=== PATIENT | male | born 1970 | race Two or more races ===

== ENCOUNTER 2018-02-24 04:36 | Emergency (ER) | payer OTHER ==
[~2018-02-24] VITALS: Ht 190.5 cm; Wt 134.7 kg
[2018-02-24] MEDS ORDERED: QUET300T2 PO (04:58)
[2018-02-24] MEDS ORDERED: LORA2TAB PO (04:58)
[2018-02-24] MEDS ORDERED: TRAZ300T2 PO (04:58)
[2018-02-24] MEDS ORDERED: BUPR-96 PO (04:58)
[2018-02-24] MEDS ORDERED: LORAZEPAM 1 MG TABLET ONE (05:29)
[2018-02-24] MEDS: LORAZEPAM 0.5 MG TABLET PO ONE (05:30)
[2018-02-24] MEDS: IV NORMAL SALINE 1000 ML BAG IV ONE (05:30)
--- NOTE | 2018-02-24 05:33 | NUR ---
Pt refused saline lock and IV fluids. aware.
[2018-02-24 05:40] LABS: BASOPHILS % (AUTO) 0.6 % (0.0-2.0); EOSINOPHILS # (AUTO) 0.4 K/uL (0.0-0.7); EOSINOPHILS % (AUTO) 4.3 % (0.0-7.0); HEMATOCRIT 38.7 % (36.7-47.1); HEMOGLOBIN 13.1 g/dL (12.5-16.3); LYMPHOCYTES # (AUTO) 1.5 K/uL (20.0-40.0); LYMPHOCYTES % (AUTO) 17.1 % (20.5-51.5); MEAN CORPUSCULAR HEMOGLOBIN 30.5 uug (23.8-33.4); MEAN CORPUSCULAR HGB CONC 34 g/dL (32.5-36.3); MEAN CORPUSCULAR VOLUME 90.2 fL (73.0-96.2); MONOCYTES # (AUTO) 0.9 K/uL (2.0-10.0); MONOCYTES % (AUTO) 10.5 % (0.0-11.0); NEUTROPHILS # (AUTO) 5.9 K/uL (1.8-8.9); NEUTROPHILS % (AUTO) 67.5 % (38.5-71.5); PLATELET COUNT (AUTO) 327 K/uL (152-348); RED BLOOD CELL COUNT(AUTO) 4.29 MIL/uL (4.06-5.63); WHITE BLOOD COUNT (AUTO) 8.8 K/uL (3.6-10.2)
[2018-02-24 05:42] LABS: *BLOOD, URINE NEGATIVE (NEGATIVE); *COLOR,URINE AMBER (YELLOW); *KETONES,URINE 1+ (NEGATIVE); *PROTEIN,URINE 1+ (NEGATIVE); *UROBILINOGEN,URINE >=8.0 E.U./dl (NORMAL); LEUKOCYTE ESTERASE ,URINE NEGATIVE (NEGATIVE); NITRITE, URINE NEGATIVE (NEGATIVE); UGLUCOSE NEGATIVE (NEGATIVE)
[2018-02-24 05:50] LABS: *BILIRUBIN,URIN 1+ (NEGATIVE); *CLARITY,URINE HAZY (CLEAR)
[2018-02-24 05:53] LABS: CARBON DIOXIDE 27 mmol/L (21-32); CHLORIDE 106 mmol/L (98-107); GLUCOSE 104 mg/dL (74-106); POTASSIUM 3.8 mmol/L (3.5-5.1); UREA NITROGEN, BLOOD 13 mg/dL (7-18)
[2018-02-24 05:54] LABS: BACTERIA,URINE NONE SEEN /HPF (NONE SEEN); MUCUS,URINE MANY /LPF (0-FEW); SQUAMOUS EPITHELIAL CELL,UR FEW /HPF (NONE SEEN); WBC,URINE 0-3 /HPF (0-3)
[2018-02-24 05:56] LABS: *AMPHETAMINE, URINE POSITIVE (NEGATIVE); *BARBITURATE, URINE NEGATIVE (NEGATIVE); *CANNABINOID, URINE POSITIVE (NEGATIVE); *COCCAINE, URINE POSITIVE (NEGATIVE); *OPIATE, URINE NEGATIVE (NEGATIVE); *PHENCYCLIDINE SCREEN,URINE NEGATIVE (NEGATIVE)
[2018-02-24 05:59] LABS: ALANINE AMINOTRANSFERASE 61 U/L (16-63); ALKALINE PHOSPHATASE 107 U/L (50-136); ASPARTATE AMINOTRANSFERASE 43 U/L (15-37); BILIRUBIN,DIRECT 0.2 mg/dL (0.0-0.2); BILIRUBIN,TOTAL 0.5 mg/dL (0.2-1.0)
[2018-02-24 06:00] LABS: ACETAMINOPHEN < 2.0 ug/mL (10-30)
[2018-02-24 06:07] LABS: ETHANOL < 3 MG/DL (0-0)
--- NOTE | 2018-02-24 07:13 | NUR ---
Report given to day shift RN.
--- NOTE | 2018-02-24 07:14 | NUR ---
recieved pt in bed resting. bf ordered.
--- NOTE | 2018-02-24 07:54 | NUR ---
pt awake, bf tray [id number]. pt eating with good apetite.
--- NOTE | 2018-02-24 11:04 | NUR ---
pt skin intact, no dressing required
--- NOTE | 2018-02-24 11:04 | NUR ---
faxed to lennie at [facility] the md dictated medical clearance.
--- NOTE | 2018-02-24 12:01 | NUR ---
pt [facility] lunch with good apetite
--- NOTE | 2018-02-24 12:20 | NUR ---
pt requesting wheel chair, explained to pt that we cannot give wheel chair to pt while being transfered to another acute hospital. pt got agitated, had to call code cano
[2018-02-24] MEDS: IBUPROFEN 800 MG TABLET PO ONE (12:24)
[2018-02-24] MEDS: GABAPENTIN 300 MG CAPSULE PO ONE (12:24)
[2018-02-24] MEDS ORDERED: IBUPROFEN 800 MG TABLET ONE (12:26)
[2018-02-24] MEDS ORDERED: GABAPENTIN 300 MG CAPSULE ONE (12:26)
--- NOTE | 2018-02-24 12:30 | NUR ---
pt calmed down. cooperative at this point
--- NOTE | 2018-02-24 12:33 | NUR ---
pt transfered to [facility] via [facility] in stable condition.
--- NOTE | 2018-02-24 12:45 | NUR ---
report given to rn at [facility]
== END 2018-02-24 12:33 | disposition short-term general hospital (02) ==
LOC: ER 04:42
DX: F29 Unspecified psychosis not due to a substance or known physiological condition (principal); R45.851 Suicidal ideations; F19.10 Other psychoactive substance abuse, uncomplicated; F31.9 Bipolar disorder, unspecified; F11.10 Opioid abuse, uncomplicated; F15.10 Other stimulant abuse, uncomplicated; Z88.8 Allergy status to other drugs, medicaments and biological substances
CPT/HCPCS: 36415; 70030-TC; 80307; 85025; 93005; A4663; G0480; G0480-TC; J7030

== ENCOUNTER 2018-04-05 06:48 | Emergency (ER) | payer OTHER ==
[~2018-04-05] VITALS: Ht 193 cm; Wt 131.5 kg
[~2018-04-05 06:48] MED LIST: BUPR-96 PO; LORA2TAB PO; QUET300T2 PO; TRAZ300T2 PO
--- NOTE | 2018-04-05 07:03 | NUR ---
PT A/OX4, RESPONSIVE TO VERBAL AND TACTILE STIMULI. PT C/O R LEG AND R KNEE PAIN. PT STATES PAIN STARTED YESTERDAY AFTER HE FELL, PROVOKED UPON MOVEMENT, DOES NOT RADIATE, 12/07, CONSTANT. UPON ASSESSMENT, LEG DOSE NOT APPEAR SWOLLEN, DEFORMED, OR HOT TO THE TOUCH. PT SELF-AMBULATES WITHOUT DIFFICULTY. PT VSS. PT IN BED, BED IN LOW AND LOCKED POSITION WITH BILATERAL SIDERAILS UP. PT ALSO ASKING FOR MEDICATIONS FOR HIS BIPOLAR D/O, STATING HE RAN OUT OF HIS PRESCRIPTION MEDS. Addendum: 04/05/18 at 0709 by ASHLEY PT DENIES HEAD INJURY RELATED TO THE FALL YESTERDAY. PT DENIES LOC AT TIME OF FALL. BLE [facility] INTACT AND < 3 SECS.
--- NOTE | 2018-04-05 07:09 | NUR ---
HEATHER MCDONALD AT BEDSIDE.
--- NOTE | 2018-04-05 07:10 | NUR ---
SBAR REPORT GIVEN TO WINNIE PIZARRO.
[2018-04-05] MEDS ORDERED: NEOMY/BACITRA/POLYMYXIN B OINT UD PACKET TP ONE ×2 (07:15→07:19)
[2018-04-05] MEDS ORDERED: IBUPROFEN 800 MG TABLET PO ONE (07:15)
--- NOTE | 2018-04-05 07:15 | NUR ---
Pt requested MD to stay in bed and rest "awhile".
[2018-04-05] MEDS ORDERED: IBUPROFEN 800 MG TABLET ONE (07:19)
--- NOTE | 2018-04-05 08:04 | NUR ---
Patient is resting comfortably in bed with eyes closed, NAD.
--- NOTE | 2018-04-05 10:21 | NUR ---
Patient is resting comfortably in bed with eyes closed, no distress noted.
--- NOTE | 2018-04-05 10:46 | NUR ---
Patient given written and verbal discharge instructions. Patient verbalizes understanding of instructions. Patient is ambulatory with steady gait. Refuses offer of alf placement. Patient given list of available shelters in surrounding area.
[2018-04-05 10:47] VITALS: BP 116/77
== END 2018-04-05 10:48 | disposition home or self-care (01) ==
LOC: ER 06:50
DX: S80.211A Abrasion, right knee, initial encounter (principal); S80.212A Abrasion, left knee, initial encounter; M25.571 Pain in right ankle and joints of right foot; Z76.0 Encounter for issue of repeat prescription; F14.10 Cocaine abuse, uncomplicated; F12.10 Cannabis abuse, uncomplicated; Z88.8 Allergy status to other drugs, medicaments and biological substances; W01.0XXA Fall on same level from slipping, tripping and stumbling without subsequent striking against object, initial encounter; Y93.89 Activity, other specified; Y92.89 Other specified places as the place of occurrence of the external cause; Y99.8 Other external cause status
CPT/HCPCS: A4663

== ENCOUNTER 2021-04-17 22:18 | Emergency (ER) | payer MEDICAID, OTHER ==
[~2021-04-17] VITALS: Ht 193 cm; Wt 113.4 kg
--- NOTE | 2021-04-17 22:40 | NUR ---
PT AMBULATED TO ER REQUESTING PSYCH EVAL D/T BEING DEPRESSED FOR SEVERAL WEEKS NOW. STATES, " I HAVEN'T TAKEN MY MEDS FOR WEEKS NOW". NO SOB OR LABORED BREATHING, AFEBRILE. CLEAR SPEECH, COMPLETE SENTENCES. DENIES SI, NO AUDIO/VISUAL HALLUCINATIINS. NOTED TO BE YELLING AND VERBALLY AGGRESIVE TOWARDS STAFF.
--- NOTE | 2021-04-17 22:42 | NUR ---
DR. RAYO AT BEDSIDE, MSE IN PROGRESS.
[2021-04-17] MEDS ORDERED: LORAZEPAM 0.5 MG TABLET PO ONE (23:30)
[2021-04-17] MEDS ORDERED: diphenhydrAMINE 50 MG CAPSULE PO ONE (23:30)
[2021-04-17] MEDS ORDERED: OLANZAPINE 5 MG TABLET PO ONE (23:30)
[2021-04-17] MEDS ORDERED: diphenhydrAMINE 50 MG CAPSULE ONE (23:32)
[2021-04-17] MEDS ORDERED: LORAZEPAM 1 MG TABLET ONE (23:32)
[2021-04-17] MEDS ORDERED: OLANZAPINE 5 MG TABLET ONE (23:32)
[2021-04-17 23:44] LABS: *BILIRUBIN,URIN NEGATIVE (NEGATIVE); *BLOOD, URINE NEGATIVE (NEGATIVE); *CLARITY,URINE CLEAR (CLEAR); *COLOR,URINE YELLOW (YELLOW); *KETONES,URINE NEGATIVE (NEGATIVE); LEUKOCYTE ESTERASE ,URINE NEGATIVE (NEGATIVE); NITRITE, URINE NEGATIVE (NEGATIVE); PH,URINE 5.5 (5.0-8.0); UGLUCOSE NEGATIVE (NEGATIVE)
--- NOTE | 2021-04-17 23:50 | NUR ---
LAB AT BEDSIDE.
[2021-04-17 23:55] LABS: BACTERIA,URINE NONE SEEN /HPF (NONE SEEN); RBC,URINE NONE SEEN /HPF (0-3); SQUAMOUS EPITHELIAL CELL,UR FEW /HPF (NONE SEEN); WBC,URINE 0-3 /HPF (0-3)
[2021-04-18 00:01] LABS: HEMATOCRIT 36.4 % (36.7-47.1); PLATELET COUNT (AUTO) 270 K/uL (152-348)
[2021-04-18 00:11] LABS: ETHANOL 5 MG/DL (0-0)
[2021-04-18 00:14] LABS: *AMPHETAMINE, URINE POSITIVE (NEGATIVE); *CANNABINOID, URINE NEGATIVE (NEGATIVE); *COCCAINE, URINE NEGATIVE (NEGATIVE); *OPIATE, URINE NEGATIVE (NEGATIVE); *PHENCYCLIDINE SCREEN,URINE NEGATIVE (NEGATIVE)
[2021-04-18 00:14] LABS: ALANINE AMINOTRANSFERASE 29 U/L (16-63); ALKALINE PHOSPHATASE 96 U/L (50-136); ASPARTATE AMINOTRANSFERASE 19 U/L (15-37); BILIRUBIN,DIRECT 0.1 mg/dL (0.0-0.2); BILIRUBIN,TOTAL 0.1 mg/dL (0.2-1.0); CARBON DIOXIDE 25 mmol/L (21-32); CHLORIDE 106 mmol/L (98-107); GLUCOSE 103 mg/dL (74-106); POTASSIUM 3.9 mmol/L (3.5-5.1); TOTAL PROTEIN, SERUM 6.7 g/dL (6.4-8.2); UREA NITROGEN, BLOOD 7 mg/dL (7-18)
[2021-04-18 00:19] LABS: ACETAMINOPHEN < 2.0 ug/mL (10-30)
--- NOTE | 2021-04-18 00:25 | NUR ---
CALLED STEVIE FROM CRISIS TEAM, ATTEMPTED TO LEAVE MESSAGE BUT VOICEMAIL IS FULL.
--- NOTE | 2021-04-18 00:42 | NUR ---
CALLED STEVIE AGAIN, VOICEMAIL IS FULL.
--- NOTE | 2021-04-18 01:14 | NUR ---
CALLED STEVIE AGAIN, NO ANSWER VOICEMAIL IS FULL.
--- NOTE | 2021-04-18 01:43 | NUR ---
PT NOTED TO E IN BED ASLEEP, BREATHING EVEN AND UNLABORED.
--- NOTE | 2021-04-18 02:37 | NUR ---
STEVIE AT BEDSIDE TO INTERVIEW PT.
--- NOTE | 2021-04-18 04:31 | NUR ---
Patient is resting comfortably in bed with eyes closed.
--- NOTE | 2021-04-18 06:44 | NUR ---
PT NOTED TO BE IN NO DISTRESS, BREATHING EVEN AND UNLABORED. RESTING COMFORTABLY IN BED. BED IN LOWEST POSITION FOR SAFETY PRECAUTIONS.
--- NOTE | 2021-04-18 07:30 | NUR ---
recieved pt in bed resting, arousable. no sign of distress.
--- NOTE | 2021-04-18 08:00 | NUR ---
pt refuses break fast
--- NOTE | 2021-04-18 08:36 | NUR ---
SETVIE CALLED AND SAID WILL FOLLOW UP ON THE CASE.
--- NOTE | 2021-04-18 09:30 | NUR ---
STEVIE AT BEDSIDE.
--- NOTE | 2021-04-18 10:36 | NUR ---
PT VOIDED 350 ML IN THE URINAL
--- NOTE | 2021-04-18 10:38 | NUR ---
SANDWICH AND JUICE PROVIDED PER PT REQUEST.
--- NOTE | 2021-04-18 11:08 | NUR ---
CALLED NORMA, THE INTAKE MANGER AT [facility], , FOR UPDATES, NORMA SAID TO CALL BACK IN 30 MINUTES FOR UPDATE.
--- NOTE | 2021-04-18 11:17 | NUR ---
NUZHTA FROM [facility] CALLED BACK AND SAID THAT [facility] [place] [facility] ACCEPTED THE PT. ACCEPTING MD IS DR. HOANG. DISPUTE RESOLUTION SPECIALIST IS HALLEY,
--- NOTE | 2021-04-18 11:21 | NUR ---
CALLED HALLEY, THE CHILLER TECHNICIAN, , AND LEFT A MESSAGE.
--- NOTE | 2021-04-18 11:50 | NUR ---
CALLED HALLEY AT [phone] AGAIN. SHE SAID THE PT CAN COME ANY TIME AND REPORT NUMBER IS [phone], THE ROOM WILL BE ASSIGNED WHEN THE PT GETS THERE.
--- NOTE | 2021-04-18 11:55 | NUR ---
CALLED [facility], ETA 40 MINUTES
--- NOTE | 2021-04-18 12:10 | NUR ---
HOSPITAL LUNCH TRAY PROVIDED. PT EATING WITH GOOD APETITE.
--- NOTE | 2021-04-18 12:36 | NUR ---
[facility] AT BEDSIDE.
--- NOTE | 2021-04-18 12:52 | NUR ---
CALLED FOR REPORT AT [phone], GOT TRANSFERED BUT NO BODY PICKED UP THE PHONE.
== END 2021-04-18 12:52 ==
LOC: ER 22:19
DX: F20.9 Schizophrenia, unspecified (principal); F31.9 Bipolar disorder, unspecified; Z91.14 Patient's other noncompliance with medication regimen; Z20.822 Contact with and (suspected) exposure to COVID-19; Z88.8 Allergy status to other drugs, medicaments and biological substances; Z79.899 Other long term (current) drug therapy; F15.10 Other stimulant abuse, uncomplicated; Z82.49 Family history of ischemic heart disease and other diseases of the circulatory system
CPT/HCPCS: 36415; 80048; 80076; 80299; 80307; 80320; 81001; 85025; 87426; 99285; Q0163; G0480

== ENCOUNTER 2022-02-27 18:26 | Emergency (ER) | payer MEDICAID ==
[~2022-02-27] VITALS: Ht 190.5 cm; Wt 126.6 kg
--- NOTE | 2022-02-27 19:31 | NUR ---
pt in room 3a he walked into the er. says he is depressed and wants to walk in front of a car. says he wants to go to a mental facility.
--- NOTE | 2022-02-27 19:37 | NUR ---
Dr. Perez at bedside for MSE.
[2022-02-27] MEDS ORDERED: diphenhydrAMINE 50 MG/1 ML VIAL ONE (19:57)
[2022-02-27] MEDS ORDERED: OLANZAPINE 10 MG VIAL IM ONE ×2 (19:57→20:00)
[2022-02-27] MEDS ORDERED: diphenhydrAMINE 50 MG/1 ML VIAL IM ONE (20:00)
[2022-02-27] MEDS ORDERED: IV NS 1000 ML 1,000 ML IV ONE (20:00)
[2022-02-27] MEDS ORDERED: QUETIAPINE FUMARATE 200 MG TABLET ONE (20:08)
--- NOTE | 2022-02-27 20:11 | NUR ---
pt restless keeps coming out of the room pt was yelling saying is this how you treat me in [place]. Dr. Perez ordered zyprexa and benadryl. this was not given. Seroquel 200mg was given. the pt now agrees to ativan po.
[2022-02-27] MEDS ORDERED: LORAZEPAM 0.5 MG TABLET PO ONE (20:15)
[2022-02-27] MEDS ORDERED: QUETIAPINE FUMARATE 25 MG TABLET PO ONE (20:15)
[2022-02-27] MEDS ORDERED: LORAZEPAM 1 MG TABLET ONE (20:15)
[2022-02-27 20:16] LABS: *BILIRUBIN,URIN NEGATIVE (NEGATIVE); *BLOOD, URINE NEGATIVE (NEGATIVE); *CLARITY,URINE CLEAR (CLEAR); *COLOR,URINE YELLOW (YELLOW); *KETONES,URINE NEGATIVE (NEGATIVE); *UROBILINOGEN,URINE 0.2 E.U./dl (NORMAL); LEUKOCYTE ESTERASE ,URINE NEGATIVE (NEGATIVE); NITRITE, URINE NEGATIVE (NEGATIVE); PH,URINE 5.5 (5.0-8.0); UGLUCOSE NEGATIVE (NEGATIVE)
--- NOTE | 2022-02-27 20:26 | NUR ---
pt is currently calm laying in bed not raising voice and is staying in the room.
[2022-02-27 20:46] LABS: *AMPHETAMINE, URINE NEGATIVE (NEGATIVE); *CANNABINOID, URINE NEGATIVE (NEGATIVE); *COCCAINE, URINE NEGATIVE (NEGATIVE); *OPIATE, URINE NEGATIVE (NEGATIVE); *PHENCYCLIDINE SCREEN,URINE NEGATIVE (NEGATIVE)
--- NOTE | 2022-02-27 21:42 | NUR ---
pt calm at this time resting is cooperative. has ivf infusing.
[2022-02-27 21:47] LABS: MEAN CORPUSCULAR HEMOGLOBIN 30.3 uug (23.8-33.4); MEAN CORPUSCULAR VOLUME 90.6 fL (73.0-96.2); PLATELET COUNT (AUTO) 335 K/uL (152-348)
[2022-02-27 21:58] LABS: CARBON DIOXIDE 25 mmol/L (21-32); CHLORIDE 107 mmol/L (98-107); CREATININE 1.4 mg/dL (0.6-1.3); GLUCOSE 141 mg/dL (74-106); POTASSIUM 3.8 mmol/L (3.5-5.1); UREA NITROGEN, BLOOD 13 mg/dL (7-18)
[2022-02-27 22:04] LABS: ALANINE AMINOTRANSFERASE 37 U/L (16-63); ALKALINE PHOSPHATASE 124 U/L (50-136); ASPARTATE AMINOTRANSFERASE 21 U/L (15-37); BILIRUBIN,DIRECT 0.1 mg/dL (0.0-0.2); BILIRUBIN,TOTAL 0.4 mg/dL (0.2-1.0); CREATINE KINASE, TOTAL 188 U/L (39-308); TOTAL PROTEIN, SERUM 7.1 g/dL (6.4-8.2)
[2022-02-27 22:06] LABS: ACETAMINOPHEN < 2.0 ug/mL (10-30)
[2022-02-27 22:18] LABS: ETHANOL < 3 MG/DL (0-0)
--- NOTE | 2022-02-27 22:33 | NUR ---
pt removed his iv and removed his pulse ox says he does not want it anymore.
--- NOTE | 2022-02-27 23:55 | NUR ---
pt is refusing blood draw, I notied Dr. Perez.
--- NOTE | 2022-02-27 23:55 | NUR ---
I informed Leslie if she can check if the pt can be admitted here. HEATHER perez says I will check.
--- NOTE | 2022-02-28 00:13 | NUR ---
per er clerical clerk pt cannot stay at this hospital he is capaitated to [facility].
[2022-02-28] MEDS ORDERED: VANCOMYCIN 1G/D5W 200 ML PIGGYBACK IV ONE (00:15)
--- NOTE | 2022-02-28 00:16 | NUR ---
pt continues to remove bp cuff remove pulse ox to meausre the heart rate. pt remains non compliant. is aware.
[2022-02-28] MEDS ORDERED: KETOROLAC TROMETHAMINE 30 MG INJ IM ONE (00:30)
[2022-02-28] MEDS ORDERED: KETOROLAC TROMETHAMINE 30 MG INJ ONE (00:37)
--- NOTE | 2022-02-28 00:43 | NUR ---
Dr. Perez ordered IV vanco on this pt, I informed Dr. Perez that the pt continues to remove the medical equipment off of him and refuses lab draws and removes his iv.
[2022-02-28] MEDS ORDERED: VANCOMYCIN IV 200 ML ONE (01:36)
--- NOTE | 2022-02-28 02:33 | NUR ---
Leslie the er deputy county clerk was told by Dr. Perez to call [facility] for admission for this pt.
--- NOTE | 2022-02-28 02:40 | NUR ---
Called [facility] to transfer patient to [facility] per insurance request and spoke to Dalila who request to have facesheet faxed to .
--- NOTE | 2022-02-28 02:59 | NUR ---
pt removed iv again and removed his pulse ox. pt received his iv vanco. Dr. Perez made aware.
--- NOTE | 2022-02-28 03:38 | NUR ---
Dr Perez spoke to Dr Womack, hospitalist from [facility] who accept patient after D-dimer result is back.
--- NOTE | 2022-02-28 04:00 | NUR ---
Per Dr. Perez [facility] is requesting the pt to be put on a 5150 psych hold. I placed a call to [facility] for crisis consult.
--- NOTE | 2022-02-28 04:10 | NUR ---
notifed subwarehouse supervisor that the pt has an order for a one to one sitter.
--- NOTE | 2022-02-28 04:48 | NUR ---
Amos from crisis team here to see the pt.
--- NOTE | 2022-02-28 06:07 | NUR ---
Dalila from [facility] Transfered called back with transfer info. Patient is accepted to [facility] Tele floor room 912 Bed 1. Call for report is . Accepting MD is Dr Womack. Dalila will call back with ETA of ambulance call back.
--- NOTE | 2022-02-28 06:22 | NUR ---
Dalila Saldanaty [facility] auth number for ambulance is [id number].
--- NOTE | 2022-02-28 06:34 | NUR ---
called [facility] for transport to [facility]. Nadir states they will pick him up between 10 to 1030 am.
--- NOTE | 2022-02-28 07:26 | NUR ---
Received pt sleeping, no signs of acute distress, respirations even and unlabored. VS assessed, within normal limits. Pt with 1:1 sitter ordered, notified AM supervisor personnel clerks at this time to f/up. None available. Kept pt in a signle room, close to station, monitored by RN. AM supervisor personnel clerks aware that pt pending transfer with transpo around 10-10:30 am today. Breakfast was ordered. Safety precautions enforced.
--- NOTE | 2022-02-28 08:13 | NUR ---
Attempted to give report to [facility] Room 912-Bed 1. RN not yet ready. Staff gave direct # . Will try again.
--- NOTE | 2022-02-28 08:38 | NUR ---
Pt is awake now, acknowledged transfer to [facility] and is aware that berry picker machine operator time is 10 AM. Pt requested a phone call, assisted pt out of bed via wheelchair for phone access.
--- NOTE | 2022-02-28 09:15 | NUR ---
Report given to [facility]. She confirmed going to [facility] [address] [facility] for [facility] also notified.
--- NOTE | 2022-02-28 09:20 | NUR ---
Social work consult was requested for a patient in the emergency room for mental health resources. Patient is 51-year-old male. Patient appears alert and oriented X4. Patient appears lethargic. Patient presents with dysphoric mood and congruent affect. Patient appears unkempt. Patient presents with poor judgment and insight. Patient states he does not have a primary route driver salesperson. Patient states he is going to live with family but refused to state the location of where he is currently living. JOVANNA provided the patient resources and gave him the information for [facility] [address] [place] [address] ([phone]) and [facility] [address] [address] ([phone]). JOVANNA gave resources for [facility] [address] [facility] [address]. Resources were placed in the chart. Patient refused to answer this writers questions and stated he was too tired. Per ER nurse, patient has a history of psychiatric diagnosis of schizoaffective disorder and bipolar disorder. JOVANNA provided the patient with mental health resources for [facility] inpatient [facility] ([phone]) [address] [facility] [place] [address]. JOVANNA also provided the patient with resources for [facility] ([phone]) [address] [facility] [address]. JOVANNA provided patient with mental health treatment center resources from [facility] [address] [facility], [facility] [address] , [facility] [address] [facility], [address] , and [facility] [address] [facility], [address] . Patient appeared ambivalent about resources. JOVANNA placed the resources in the patients chart. Patient states that he is getting transferred to [facility] for medical treatment of cellulitis today. ER nursing staff confirmed patient is being transferred today to [facility] [address] [place] [address].
--- NOTE | 2022-02-28 10:18 | NUR ---
[facility] ambulance here to take pt to [facility].
--- NOTE | 2022-02-28 10:24 | NUR ---
Report was given to EMT's. Made aware that pt was refusing IV insertion with RN. Pt left in stable condition via gurney, snacks were provided. VS as recorded.
== END 2022-02-28 10:40 ==
LOC: ER 18:27
DX: R45.851 Suicidal ideations (principal); F25.9 Schizoaffective disorder, unspecified; F31.9 Bipolar disorder, unspecified; N28.9 Disorder of kidney and ureter, unspecified; Z20.822 Contact with and (suspected) exposure to COVID-19; R00.0 Tachycardia, unspecified; M79.89 Other specified soft tissue disorders; Z79.899 Other long term (current) drug therapy; L97.429 Non-pressure chronic ulcer of left heel and midfoot with unspecified severity
CPT/HCPCS: 80076; 80048; 81003; 82550; 84439; 84443; 85025; 87426; 36415 ×2; 73630; 99285; 96361; 80299; 80320; 80307; 85379; 85651; 93005; 96365; 96366; 96372; 83605; J1200; J7040; J1885; J3370; G0480; J2358